=== PATIENT | male | born 1945 | race Caucasian/White ===

== ENCOUNTER → 2021-03-02 | Outpatient (CLI) | payer OTHER ==
[2021-03-02 12:22] LABS: URINE BILIRUBIN NEGATIVE (Negative); URINE BLOOD NEGATIVE (Negative); URINE CLARITY CLEAR; URINE COLOR YELLOW; URINE GLUCOSE-RANDOM NEGATIVE (Negative); URINE KETONES NEGATIVE (Negative); URINE LEUKOCYTES NEGATIVE (Negative); URINE NITRITE NEGATIVE (Negative); URINE PROTEIN NEGATIVE (Negative); URINE SPECIFIC GRAVITY >= 1.030 (1.005-1.030); URINE UROBILINOGEN 0.2 E.U./dl (0.2-1.0)
[2021-03-02 12:35] LABS: ALBUMIN 3.9 g/dL (3.4-5.0); CREATININE 1.3 mg/dL (0.6-1.3); TOTAL BILIRUBIN 0.3 mg/dL (<0.1-1.0); TOTAL PROTEIN 7.3 g/dL (6.4-8.2)
--- NOTE | 2021-03-02 15:21 | 2DMMODE ---
[place] [address] 2 D/M-MODE ECHOCARDIOGRAM Name: MAGO GONZALEZ Room: [facility]#: [id number] Admission: 03/02/21 Attend Phys: Mark Burt MD Discharge: Date of : 45 Date of Service: 03/02/21 1521 Report #: [id number] THIS REPORT FOR: cc: Mark Burt MD,Mark Akins,Casey Miller MD [facility] ~ APPROVED REPORT Study performed: 03/02/2021 12:21:39 EXAM: Comprehensive 2D, Doppler, and color-flow Echocardiogram Patient Location: Out-Patient BSA: 2.29 HR: 56 bpm BP: 120/70 mmHg Other Information Study Quality: Good Indications CAD 2D Dimensions IVSd: 11.07 (7-11mm) LVOT Diam: 20.48 (18-24mm) LVDd: 51.80 mm PWd: 10.53 (7-11mm) Ascending Ao: 33.02 (22-36mm) LVDs: 37.28 (25-40mm) Aortic Root: 36.66 mm Volumes Left Atrial Volume (Systole) LA ESV Index: 16.20 mL/m2 Aortic Valve AoV Peak Jason.: 1.26 m/s AO Peak Gr.: 6.34 mmHg LVOT Max P.15 mmHg AO Mean Gr.: 3.31 mmHg LVOT Mean P.66 mmHg LVOT Max V: 1.02 m/s AO V2 VTI: 22.59 cm LVOT Mean V: 0.57 m/s ALPESH (VTI): 3.16 cm2 LVOT V1 VTI: 21.64 cm Mitral Valve E/A Ratio: 0.69 [place] [address] 2 D/M-MODE ECHOCARDIOGRAM Name: MAGO GONZALEZ Room: [facility]#: [id number] Admission: 03/02/21 Attend Phys: Mark Burt MD Discharge: Date of : 45 Date of Service: 03/02/21 1521 Report #: [id number] MV Decel. Time: 223.77 ms MV E Max Jason.: 0.46 m/s MV PHT: 64.89 ms MVA (PHT): 3.39 cm2 TDI E/Lateral E': 6.57 E/Medial E': 7.67 Medial E' Jason.: 0.06 m/s Lateral E' Jason.: 0.07 m/s Pulmonary Valve PV Peak Jason.: 1.05 m/s PV Peak Gr.: 4.37 mmHg Tricuspid Valve RAP Estimate: 5.00 mmHg TR Peak Gr.: 12.97 mmHg RVSP: 17.97 mmHg PA Pressure: 17.97 mmHg Left Ventricle The left ventricle is normal size. There is normal LV segmental wall motion. There is normal left ventricular wall thickness. Left ventricular systolic function is normal. The left ventricular ejection fraction is within the normal range. LVEF is 55-60%. Grade I - abnormal relaxation pattern. Right Ventricle Right ventricle is mildly dilated. Right ventricle is mildly hypokinetic. Atria The left atrium size is normal. The right atrium size is normal. Aortic Valve The aortic valve is normal in structure. No aortic regurgitation is present. There is no aortic valvular stenosis. Mitral Valve The mitral valve is normal in structure. There is no mitral valve regurgitation noted. No evidence of mitral valve stenosis. Tricuspid Valve The tricuspid valve is normal in structure. Trace tricuspid regurgitation[place] [address] 2 D/M-MODE ECHOCARDIOGRAM Name: MAGO GONZALEZ Room: [facility]#: [id number] Admission: 03/02/21 Attend Phys: Mark Burt MD Discharge: Date of : 45 Date of Service: 03/02/21 1521 Report #: [id number] Pulmonic valve is not well visualized. Mild pulmonic regurgitation. Great Vessels The aortic root is normal in size. IVC is normal in size and collapses >50% with inspiration. Pericardium There is no pericardial effusion. <Conclusion> LVEF is 55-60%. Right ventricle is mildly dilated. Trace tricuspid regurgitation. Mild pulmonic regurgitation. <ELECTRONICALLY SIGNED> By: Casey Akins MD, FACC 03/02/21 1521 1521 1521 Casey Akins MD, FACC /INF
== END ==
LOC: M.CRD 12:00
PROVIDERS: ATTEND Orthopaedic Surgery
DX: I08.8 Other rheumatic multiple valve diseases (principal); E11.9 Type 2 diabetes mellitus without complications; I25.9 Chronic ischemic heart disease, unspecified